=== PATIENT | male | born 1975 | race Caucasian/White ===

== ENCOUNTER 2019-01-09 20:38 | Emergency (ER) | payer MEDICAID ==
[~2019-01-09] VITALS: Ht 172.7 cm; Wt 100.0 kg
[2019-01-09 20:50] VITALS: BP 152/109
[2019-01-09] MEDS ORDERED: INSLAN SQ (20:56)
[2019-01-09] MEDS ORDERED: METF-960 PO (20:56)
[2019-01-09 20:59] LABS: GLUCOSE,POINT OF CARE 158 MG/DL (70-110)
[2019-01-09] MEDS ORDERED: OxyCODONE HCL/ACETAMINOPHEN 5-325 MG TABLET PO ONE (22:30)
== END 2019-01-09 23:23 | disposition home or self-care (01) ==
LOC: EMS 20:39 → EDBD 20:39 → EMS 23:23
DX: H60.91 Unspecified otitis externa, right ear (principal); E11.9 Type 2 diabetes mellitus without complications; Z79.4 Long term (current) use of insulin; Z79.84 Long term (current) use of oral hypoglycemic drugs

== ENCOUNTER 2020-12-01 14:53 | Emergency (ER) | payer MEDICAID ==
[~2020-12-01] VITALS: Ht 182.9 cm; Wt 103.0 kg
[~2020-12-01 14:53] MED LIST: INSLAN SQ; METF-960 PO
[2020-12-01 15:14] LABS: GLUCOSE,POINT OF CARE 110 MG/DL (70-110)
[2020-12-01] MEDS ORDERED: IBUPROFEN 800 MG TABLET PO ONE (16:15)
[2020-12-01] MEDS ORDERED: POVIDONE-IODINE 10% 15 ML SOLUTION UD TP ONE (16:15)
[2020-12-01] MEDS ORDERED: PERTUSS(ACELL),DIPH,TET VAC/PF 0.5 ML VIAL IM ONE (16:45)
[2020-12-01 18:07] VITALS: BP 131/80
== END 2020-12-01 18:12 | disposition home or self-care (01) ==
LOC: EMS 14:55
DX: S91.342A Puncture wound with foreign body, left foot, initial encounter (principal); E11.9 Type 2 diabetes mellitus without complications; W25.XXXA Contact with sharp glass, initial encounter; Y93.89 Activity, other specified; Y92.89 Other specified places as the place of occurrence of the external cause; Y99.8 Other external cause status
CPT/HCPCS: 90471; 90715; 99283